=== PATIENT | male | born 1955 | race Caucasian/White ===

== ENCOUNTER 2022-08-06 12:42 | Inpatient (IN) ==
[2022-08-07] MEDS ORDERED: Furosemide 40 MG TABLET PO PRN (11:35)
[2022-08-07] MEDS: *HR* Rivaroxaban 10 MG TABLET PO SCH (16:10)
[2022-08-07] MEDS: Gabapentin 400 MG CAPSULE PO SCH ×2 (16:10→20:20)
[2022-08-07] MEDS: cephALEXin 500 MG CAPSULE PO SCH ×2 (16:10→20:21)
[2022-08-07] MEDS: QUEtiapine Fumarate 100 MG TABLET PO SCH (20:20)
[2022-08-07] MEDS: *HR* OxyCODONE/APAP 5/325 TABLET PO PRN (20:20)
[2022-08-08 04:18] LABS: Basophils % 0.7 %; Eosinophils # 0.4 K/mcL (0.0-0.6); Eosinophils % 7.7 %; Hematocrit 35.2 % (37.5-50.1); Hemoglobin 11.6 g/dL (12.9-16.9); Immature Granulocytes % 0.2 % (0-4); Lymphocytes # 1.8 K/mcL (0.6-4.6); Lymphocytes % 32.1 %; Mean Corpuscular Volume 82.1 fL (83.0-100.0); Mean Platelet Volume 10.1 fL (9.4-12.4); Monocytes # 0.8 K/mcL (0.0-1.3); Neutrophils # 2.4 K/mcL (1.6-8.9); Platelet Count 245 K/mcL (140-400); Red Blood Count 4.29 M/mcL (4.19-5.50); Red Cell Distribution Width 13.5 % (11.5-14.5); Segmented Neutrophils % 44.3 %; White Blood Count 5.5 K/mcL (4.3-11.1)
[2022-08-08 04:33] LABS: BUN/Creatinine Ratio 13 (6-26); Blood Urea Nitrogen 11 mg/dL (8-23); Calcium 8.8 mg/dL (8.6-10.3); Carbon Dioxide 29 mEq/L (23-29); Chloride 104 mEq/L (98-107); Glucose 85 mg/dL (70-105); Osmolality,Calculated 285 (280-300); Potassium 4.3 mEq/L (3.5-5.1); Sodium 138 mEq/L (136-145)
[2022-08-08] MEDS: *HR* OxyCODONE/APAP 5/325 TABLET PO PRN ×4 (04:54→20:24)
[2022-08-08] MEDS: cephALEXin 500 MG CAPSULE PO SCH ×3 (08:19→20:24)
[2022-08-08] MEDS: Gabapentin 400 MG CAPSULE PO SCH ×3 (08:19→20:24)
[2022-08-08] MEDS: polyethylene glycoL 3350 17 GM POWD.PACK PO SCH (08:20)
[2022-08-08] MEDS: *HR* Rivaroxaban 10 MG TABLET PO SCH (16:34)
[2022-08-08] MEDS: Loratadine 10 MG TABLET PO SCH (17:53)
[2022-08-08] MEDS: QUEtiapine Fumarate 100 MG TABLET PO SCH (20:24)
[2022-08-09] MEDS: *HR* OxyCODONE/APAP 5/325 TABLET PO PRN ×5 (05:09→21:18)
[2022-08-09] MEDS: Loratadine 10 MG TABLET PO SCH (09:06)
[2022-08-09] MEDS: cephALEXin 500 MG CAPSULE PO SCH ×3 (09:06→21:18)
[2022-08-09] MEDS: Gabapentin 400 MG CAPSULE PO SCH ×3 (09:06→21:18)
[2022-08-09] MEDS: polyethylene glycoL 3350 17 GM POWD.PACK PO SCH (09:07)
[2022-08-09] MEDS: *HR* Rivaroxaban 10 MG TABLET PO SCH (17:13)
[2022-08-09] MEDS: QUEtiapine Fumarate 100 MG TABLET PO SCH (21:18)
[2022-08-10] MEDS: *HR* OxyCODONE/APAP 5/325 TABLET PO PRN ×5 (06:10→22:41)
[2022-08-10] MEDS: Loratadine 10 MG TABLET PO SCH (10:00)
[2022-08-10] MEDS: cephALEXin 500 MG CAPSULE PO SCH ×3 (10:00→22:42)
[2022-08-10] MEDS: Gabapentin 400 MG CAPSULE PO SCH ×3 (10:00→22:41)
[2022-08-10] MEDS: polyethylene glycoL 3350 17 GM POWD.PACK PO SCH (10:01)
[2022-08-10] MEDS: *HR* Rivaroxaban 10 MG TABLET PO SCH (17:12)
[2022-08-10] MEDS: Melatonin 3 MG TABLET PO PRN (22:42)
[2022-08-10] MEDS: QUEtiapine Fumarate 100 MG TABLET PO SCH (22:42)
[2022-08-11 05:02] LABS: Hematocrit 34.9 % (37.5-50.1); Hemoglobin 11.4 g/dL (12.9-16.9); Mean Corpuscular HGB Conc 32.7 g/dL (31.6-35.5); Mean Corpuscular Hemoglobin 26.9 pg (28.0-33.3); Mean Corpuscular Volume 82.3 fL (83.0-100.0); Mean Platelet Volume 9.8 fL (9.4-12.4); Platelet Count 259 K/mcL (140-400); Red Blood Count 4.24 M/mcL (4.19-5.50); Red Cell Distribution Width 13.5 % (11.5-14.5); White Blood Count 5.4 K/mcL (4.3-11.1)
[2022-08-11 05:18] LABS: Albumin 3.4 g/dL (3.5-5.7); Albumin/Globulin Ratio 1.4 (1.1-2.2); Bilirubin,Total 0.4 mg/dL (0.3-1.0); Calcium 8.8 mg/dL (8.6-10.3); Globulin 2.5 g/dL (2.4-3.5); Magnesium 2.1 mg/dL (1.6-2.6); Potassium 4.5 mEq/L (3.5-5.1); Total Protein 5.9 g/dL (6.4-8.9)
[2022-08-11] MEDS: *HR* OxyCODONE/APAP 5/325 TABLET PO PRN ×5 (06:37→22:42)
[2022-08-11] MEDS: polyethylene glycoL 3350 17 GM POWD.PACK PO SCH (09:01)
[2022-08-11] MEDS: Gabapentin 400 MG CAPSULE PO SCH ×3 (09:02→22:42)
[2022-08-11] MEDS: Loratadine 10 MG TABLET PO SCH (09:02)
[2022-08-11] MEDS: cephALEXin 500 MG CAPSULE PO SCH ×3 (09:02→22:42)
[2022-08-11] MEDS: *HR* Rivaroxaban 10 MG TABLET PO SCH (16:24)
[2022-08-11] MEDS: QUEtiapine Fumarate 100 MG TABLET PO SCH (22:42)
[2022-08-11] MEDS: Melatonin 3 MG TABLET PO PRN (22:42)
[2022-08-12] MEDS: Loratadine 10 MG TABLET PO SCH (07:41)
[2022-08-12] MEDS: Gabapentin 400 MG CAPSULE PO SCH ×3 (07:41→20:03)
[2022-08-12] MEDS: *HR* OxyCODONE/APAP 5/325 TABLET PO PRN ×4 (07:41→20:04)
[2022-08-12] MEDS: cephALEXin 500 MG CAPSULE PO SCH ×3 (07:41→20:03)
[2022-08-12] MEDS: polyethylene glycoL 3350 17 GM POWD.PACK PO SCH (07:42)
[2022-08-12 07:44] VITALS: RESP 16
[2022-08-12] MEDS: *HR* Rivaroxaban 10 MG TABLET PO SCH (15:57)
[2022-08-12 19:15] VITALS: BP 112/72; PULSE 64; TEMP 97.9; O2SAT 95
[2022-08-12] MEDS: Melatonin 3 MG TABLET PO PRN (20:03)
[2022-08-12] MEDS: QUEtiapine Fumarate 100 MG TABLET PO SCH (20:03)
== END 2022-08-12 23:59 | disposition other institution (70) | DRG 641 ==
LOC: INPGRE 08-07 14:09
PROVIDERS: ADMIT Family Medicine; ATTEND Family Medicine